=== PATIENT | female | born 1985 | race Caucasian/White ===

== ENCOUNTER 2016-09-01 10:32 | Inpatient (IN) | payer OTHER ==
[2016-09-01 11:19] LABS: ROM Internal QC QC Line Present
[2016-09-01 13:11] LABS: Hematocrit 41 % (35-47); Hemoglobin 13.7 g/dl (12.0-16.0); Mean Corpuscular HGB Conc 34 g/dl (31-36); Mean Corpuscular Hemoglobin 31 pg (27-31); Mean Corpuscular Volume 91 fL (80-97); Red Blood Count 4.49 10^6/ul (4.0-5.4); Red Cell Distribution Width 13 % (10.5-15); White Blood Count 13.4 10^3/ul (3.5-10.8)
[2016-09-01 13:12] LABS: Add Diff/Slide Review? Slide Review Added; Comments Flag Yes
[2016-09-01 15:00] LABS: Mean Platelet Volume 12 um3 (7.4-10.4)
[2016-09-01] MEDS ORDERED: Dinoprostone* 10 MG VAG.SUPP VAGINAL ONE (16:37)
[2016-09-01] MEDS ORDERED: Ibuprofen TAB* 600 MG ONE (20:59)
[2016-09-01] MEDS ORDERED: Dibucaine 1% 28.35 GM TUBE PR PRN (21:03)
[2016-09-01] MEDS ORDERED: Witch Hazel PAD* JAR TOPICAL PRN (21:03)
[2016-09-01] MEDS ORDERED: OXYTOCIN* 10 UNITS/ML 1 ML VIAL IM ONE (21:03)
[2016-09-01] MEDS ORDERED: Acetaminophen TAB* 325 MG PO PRN (21:03)
[2016-09-02] MEDS: Ibuprofen TAB* 600 MG PO PRN ×3 (04:38→21:00)
[2016-09-02 08:12] LABS: Hematocrit 36 % (35-47); Hemoglobin 11.7 g/dl (12.0-16.0); Mean Corpuscular HGB Conc 33 g/dl (31-36); Mean Corpuscular Hemoglobin 31 pg (27-31); Mean Corpuscular Volume 93 fL (80-97); Mean Platelet Volume 12 um3 (7.4-10.4); Red Blood Count 3.82 10^6/ul (4.0-5.4); Red Cell Distribution Width 13 % (10.5-15); White Blood Count 19.3 10^3/ul (3.5-10.8)
[2016-09-02 08:13] LABS: Add Diff/Slide Review? Slide Review Added; Comments Flag Yes
[2016-09-02] MEDS ORDERED: Ferrous Gluconate TAB* 324 MG TAB PO SCH (09:00)
[2016-09-02] MEDS: Docusate CAP* 100 MG PO SCH ×3 (09:32→21:00)
[2016-09-02 21:04] VITALS: BP 118/73
[2016-09-03] MEDS: Docusate CAP* 100 MG PO SCH ×2 (07:57→14:55)
[2016-09-03] MEDS: Ibuprofen TAB* 600 MG PO PRN ×2 (07:58→14:54)
--- NOTE | 2016-09-03 09:05 | PTEDU ---
Patient Name: ALISA KAMARA ALISA KAMARA selected video: Never Ever Shake a Baby to view on 09/03/2016 at 9:04:01 AM from [facility] [id number]
== END 2016-09-03 20:12 | disposition home or self-care (01) | DRG 560 ==
LOC: MCHOBOUT 10:32 → MCHOB 12:09
PROVIDERS: ADMIT Midwife; ATTEND Midwife
PROC: 4A1HX4Z Monitoring of Products of Conception, Cardiac Electrical Activity, External Approach (ICD-10-PCS; principal; 2016-09-01)
PROC: 10907ZC Drainage of Amniotic Fluid, Therapeutic from Products of Conception, Via Natural or Artificial Opening (ICD-10-PCS; 2016-09-01)
PROC: 10E0XZZ Delivery of Products of Conception, External Approach (ICD-10-PCS; 2016-09-01)
PROC: 0HQ9XZZ Repair Perineum Skin, External Approach (ICD-10-PCS; 2016-09-01)
DX: O69.1XX0 Labor and delivery complicated by cord around neck, with compression, not applicable or unspecified (principal); O99.824 Streptococcus B carrier state complicating childbirth; O42.02 Full-term premature rupture of membranes, onset of labor within 24 hours of rupture; O32.6XX0 Maternal care for compound presentation, not applicable or unspecified; O70.0 First degree perineal laceration during delivery; Z3A.39 39 weeks gestation of pregnancy; Z37.0 Single live birth
CPT/HCPCS: 36415; 84112; 85025; 86850; 86900; 86901; A9270-GY

== ENCOUNTER 2020-12-11 09:31 | Inpatient (IN) ==
[2020-12-11] MEDS ORDERED: Lactated Ringers 1000 ml BAG 1,000 ML IV ONE (10:07)
[2020-12-11] MEDS ORDERED: Buffered Lidocaine 1% SYRIN 1 ml INTRADERM ONE (10:07)
[2020-12-11] MEDS ORDERED: Lactated Ringers 1000 ml BAG 1,000 ML IV SCH (11:00)
[2020-12-11 11:32] LABS: Urine Benzodiazepine Screen None Detected (None Detect); Urine Cannabinoids Screen None Detected (None Detect); Urine Opiates Screen None Detected (None Detect)
[2020-12-11 13:03] LABS: Rapid COVID-19 Molecular Undetected (Undetected)
[2020-12-12] MEDS ORDERED: Glycerin ADULT 2.4 gm SUPP PR PRN (01:16)
[2020-12-12] MEDS ORDERED: Witch Hazel PAD JAR TOPICAL PRN (01:16)
[2020-12-12] MEDS ORDERED: Dibucaine 1% OINT 28.35 GM TUBE PR PRN (01:16)
[2020-12-12] MEDS ORDERED: Oxytocin 10 UNITS/ML 1 ML VIAL ONE (03:15)
[2020-12-12] MEDS ORDERED: Lidocaine 1% VIAL 10 MG/ML VIAL ONE (03:15)
[2020-12-13 06:52] LABS: ABS Basophils 0.1 10^3/ul (0-0.2); ABS Eosinophils 0.2 10^3/ul (0-0.6); ABS Lymphocytes 3.3 10^3/ul (1.0-4.8); ABS Neutrophils 7.5 10^3/ul (1.5-7.7); Eosinophil % 1.9 %; Hematocrit 37 % (35-47); Hemoglobin 12.7 g/dL (12.0-16.0); Lymphocyte % 27.3 %; Mean Corpuscular HGB Conc 34 g/dL (31-36); Mean Corpuscular Hemoglobin 31 pg (27-31); Mean Corpuscular Volume 90 fL (80-97); Mean Platelet Volume 10.5 fL (7.4-10.4); Platelet Count 180 10^3/uL (150-450); Red Blood Count 4.14 10^6 /uL (3.70-4.87); Red Cell Distribution Width 13 % (10-15); White Blood Count 12.1 10^3/uL (3.5-10.8)
[2020-12-14 20:16] VITALS: BP 104/61
== END 2020-12-14 23:00 | disposition home or self-care (01) | DRG 560 ==
LOC: MCHOBOUT 09:31 → MCHOB 11:22
PROVIDERS: ADMIT Midwife; ATTEND Midwife